=== PATIENT | male | born 1985 | race Caucasian/White ===

== ENCOUNTER 2016-12-06 10:33 | Emergency (ER) | payer MEDICAID, OTHER ==
[~2016-12-06] VITALS: Ht 167.6 cm; Wt 84.0 kg
[2016-12-06 12:15] VITALS: BP 148/92
[2016-12-06] MEDS ORDERED: IBUPROFEN 800MG TABLET PO ONE (12:15)
== END 2016-12-06 12:25 | disposition home or self-care (01) ==
LOC: ER 12:08
DX: M54.5 Low back pain (principal); M25.562 Pain in left knee; M25.521 Pain in right elbow; M25.522 Pain in left elbow; Y93.66 Activity, soccer; Y99.9 Unspecified external cause status; Y92.89 Other specified places as the place of occurrence of the external cause; F17.200 Nicotine dependence, unspecified, uncomplicated
CPT/HCPCS: 99282

== ENCOUNTER 2021-06-30 06:39 | Emergency (ER) | payer SELFPAY ==
[~2021-06-30] VITALS: Ht 167.6 cm; Wt 73.0 kg
[2021-06-30 06:40] VITALS: BP 177/101
== END 2021-06-30 06:59 | disposition home or self-care (01) ==
LOC: ER 06:39
DX: R56.9 Unspecified convulsions (principal)
CPT/HCPCS: 99283